=== PATIENT | male | born 1955 | race Caucasian/White ===

== ENCOUNTER 2018-11-10 08:26 | Outpatient (CLI) | payer MEDICAID ==
[2018-11-10 11:18] LABS: BUN - BLOOD UREA NITROGEN 13 mg/dL (6-20); CALCIUM 9.2 mg/dL (8.5-10.3); CARBON DIOXIDE - CO2 26 mmol/L (21-32); CHLORIDE 102 mmol/L (101-111); CHOL/HDL RATIO 2.9 (<5.0); CHOLESTEROL 206 mg/dL; CREATININE 0.7 mg/dL (0.6-1.2); GFR - MDRD 114 (>89); GLUCOSE 101 mg/dL (70-100); HDL CHOLESTEROL 71 mg/dL; LDL CHOLESTEROL,CALCULATED 114 mg/dL; LDL/HDL RATIO 1.6 (<3.6); SODIUM 138 mmol/L (135-145); VLDL CHOLESTEROL 21 mg/dL
== END 2018-11-10 08:27 | disposition home or self-care (01) ==
LOC: LAB.F 08:26
PROVIDERS: ATTEND Internal Medicine
DX: Z00.00 Encounter for general adult medical examination without abnormal findings (principal); Z12.5 Encounter for screening for malignant neoplasm of prostate
CPT/HCPCS: 36415; 80048; 80061; 83721; 84153

== ENCOUNTER 2019-02-01 08:55 | Day surgery (SDC) | payer MEDICAID ==
[~2019-02-01 08:55] MED LIST: MIDAZOLAM 2 MG/2 ML VIAL IVP ONE; fentaNYL 250 MCG/5 ML VIAL IVP ONE
[2019-02-01] MEDS ORDERED: LACTATED RINGERS 1,000 ML IV ONE ×2 (09:00→10:26)
[2019-02-01 11:23] VITALS: BP 110/70
== END 2019-02-01 08:56 | disposition home or self-care (01) ==
LOC: SDS 08:55
PROVIDERS: ATTEND Internal Medicine Gastroenterology
PROC: 0DBP8ZZ Excision of Rectum, Via Natural or Artificial Opening Endoscopic (ICD-10-PCS; principal; 2019-02-01 10:00)
DX: Z12.11 Encounter for screening for malignant neoplasm of colon (principal); K62.1 Rectal polyp; K57.30 Diverticulosis of large intestine without perforation or abscess without bleeding; K64.8 Other hemorrhoids
CPT/HCPCS: 45380; J7120

== ENCOUNTER 2021-08-21 10:07 | Outpatient (CLI) | payer MEDICARE, MEDICAID ==
--- NOTE | 2021-08-21 10:43 | XRAY Report ---
PROCEDURE: Knee 3 View RT INDICATIONS: KNEE JOINT PAIN, RIGHT TECHNIQUE: 3 views of the right knee(s) were acquired. COMPARISON: None. FINDINGS: Bones: No fractures or dislocations. Mild to moderate tricompartmental osteoarthritis is seen more prominent in medial femoral tibial compartment. No suspicious bony lesions. Soft tissues: No joint effusion. Calcification along distal quadriceps tendon is also noted which ma y indicate calcific tendinitis. Chondrocalcinosis in medial and lateral femoral tibial compartments a re seen. IMPRESSION: Mild to moderate tricompartmental osteoarthritis and chondromalacia. No fracture or disl ocation. Possible calcific tendinitis involving distal quadriceps tendons. Reviewed by: Bobby Carbajal MD on 08/21/2021 10:41 AM PDT Approved by: Bobby Carbajal MD on 08/21/2021 10:41 AM PDT Station ID: [id number]
== END 2021-08-21 23:59 | disposition home or self-care (01) ==
LOC: DI.S 10:07
PROVIDERS: ATTEND Physician Assistant Medical
DX: M17.11 Unilateral primary osteoarthritis, right knee (principal); M94.261 Chondromalacia, right knee

== ENCOUNTER 2022-04-08 11:11 | Outpatient (CLI) | payer MEDICARE, MEDICAID ==
--- NOTE | 2022-04-08 12:23 | XRAY Report ---
PROCEDURE: Lumbar Spine 2 View INDICATIONS: THORACIC AND LOW BACK PAIN TECHNIQUE: 2 views of the lumbar spine were acquired. COMPARISON: None. FINDINGS: Bones: 5 [id number] vertebrae are present. There is extensive posterior fusion of lower thorac ic and lumbar spine extending from T11 through L4 levels. Mild straightening of normal lumbar lordosi s is seen. No vertebral body compression fractures. Degenerative endplate changes and bilateral facet arthrosis at L4-5 and L5-S1 levels are seen. No gross hardware loosening or failure. No suspicious b niels lesions. Soft tissues: Overlying bowel gas pattern is normal. No suspicious soft tissue calcifications. IMPRESSION: Post fusion changes at T11-L4 levels with straightening of normal lumbar lordosis. No ac elaina compression fracture. No gross hardware complication. Degenerative disc disease at L4-5 and L5-S1 levels. Reviewed by: Bobby Carbajal MD on 04/08/2022 12:22 PM PDT Approved by: Bobby Carbajal MD on 04/08/2022 12:22 PM PDT Station ID: [id number]
--- NOTE | 2022-04-08 12:26 | XRAY Report ---
PROCEDURE: Thoracic Spine 2 View INDICATIONS: THORACIC AND LOW BACK PAIN TECHNIQUE: 3 views of the thoracic spine were acquired. COMPARISON: None. FINDINGS: Bones: Fusion hardware in lower thoracic spine and lumbar spine is seen. No gross hardware loosening or failure. There is mild kyphosis centered at T6-7 level. No acute vertebral body compression fractu res. No suspicious bony lesions. Mild degenerative endplate changes throughout mid to lower thoracic spine is seen. 12 pairs of ribs are noted, and appear intact where visualized. Soft tissues: No paravertebral stripe thickening. IMPRESSION: Prior fusion of lower thoracic spine and lumbar spine. No gross hardware loosening or failure. No acu te compression fracture or spondylolisthesis. Degenerative disc disease in mid to lower thoracic spin e. Reviewed by: Bobby Carbajal MD on 04/08/2022 12:24 PM PDT Approved by: Bobby Carbajal MD on 04/08/2022 12:24 PM PDT Station ID: [id number]
[2022-04-08 12:40] LABS: ALBUMIN/GLOBULIN RATIO 1.4 (1.0-2.2); ALKALINE PHOSPHATASE 44 IU/L (42-121); ALT ALANINE AMINOTRANSFERASE 23 IU/L (10-60); AST ASPARTATE AMINOTRANSFERASE 27 IU/L (10-42); BILIRUBIN,TOTAL 0.9 mg/dL (0.2-1.0); BUN - BLOOD UREA NITROGEN 17 mg/dL (6-20); CALCIUM 9.9 mg/dL (8.5-10.3); CARBON DIOXIDE - CO2 27 mmol/L (21-32); CHLORIDE 101 mmol/L (101-111); CHOL/HDL RATIO 3.1 (<5.0); CHOLESTEROL 304 mg/dL; CREATININE 0.7 mg/dL (0.6-1.2); GFR - MDRD 113 (>89); GLUCOSE 107 mg/dL (70-100); HDL CHOLESTEROL 97 mg/dL; LDL CHOLESTEROL,CALCULATED 173 mg/dL; LDL/HDL RATIO 1.8 (<3.6); POTASSIUM 3.8 mmol/L (3.5-5.0); SODIUM 138 mmol/L (135-145); TOTAL PROTEIN 8.5 g/dL (6.7-8.2); TRIGLYCERIDES 172 mg/dL; VLDL CHOLESTEROL 34 mg/dL
[2022-04-08 20:50] LABS: CHLAMYDIA TRACHOMATIS DNA NEGATIVE (NEGATIVE); NEISSERIA GONORRHOEAE DNA NEGATIVE (NEGATIVE)
[2022-04-09 04:09] LABS: HBsAG SCREEN Negative (Negative); HCV AB <0.1 s/co ratio (0.0-0.9); HEPATITIS B SURFACE AB QUANT <3.1 mIU/mL (Immunity>9.9)
[2022-04-09 06:11] LABS: RPR Non Reactive (Non Reactive)
[2022-04-09 07:11] LABS: HIV SCREEN 4TH GENERATION Non Reactive (Non Reactive)
== END 2022-04-08 11:12 | disposition home or self-care (01) ==
LOC: DI 11:11
PROVIDERS: ATTEND Nurse Practitioner Family
DX: M51.36 Other intervertebral disc degeneration, lumbar region (principal); M51.37 Other intervertebral disc degeneration, lumbosacral region; M47.816 Spondylosis without myelopathy or radiculopathy, lumbar region; M47.817 Spondylosis without myelopathy or radiculopathy, lumbosacral region; M51.34 Other intervertebral disc degeneration, thoracic region; Z11.3 Encounter for screening for infections with a predominantly sexual mode of transmission
CPT/HCPCS: 36415; 80053; 80061; 83721; 84153; 86317; 86592; 86803; 87340; 87389; 87491; 87591; 87661

== ENCOUNTER 2022-06-16 11:19 | Outpatient (CLI) | payer MEDICARE, MEDICAID ==
--- NOTE | 2022-06-16 14:43 | XRAY Report ---
PROCEDURE: Shoulder 3 View BILAT INDICATIONS: BILAT SHOULDER PAIN TECHNIQUE: 6 views of the shoulder were acquired. COMPARISON: None. FINDINGS: Bones: No fractures or dislocations. Moderate bilateral acromioclavicular joint osteoarthritic lindsay ges are seen. Mild to moderate bilateral glenohumeral joint osteoarthritic changes also noted. No jerica picious bony lesions. Visualized ribs appear intact. Soft tissues: No suspicious soft tissue calcifications. IMPRESSION: Moderate bilateral acromioclavicular joint and glenohumeral joint osteoarthritis. No fra cture or dislocation. No gross soft tissue abnormality. Reviewed by: Bobby Carbajal MD on 06/16/2022 2:42 PM PDT Approved by: Bobby Carbajal MD on 06/16/2022 2:42 PM PDT Station ID: [id number]
== END 2022-06-16 11:20 | disposition home or self-care (01) ==
LOC: DI 11:19
PROVIDERS: ATTEND Nurse Practitioner Family
DX: M19.012 Primary osteoarthritis, left shoulder (principal); M19.011 Primary osteoarthritis, right shoulder

== ENCOUNTER 2023-10-16 11:09 | Emergency (ER) | payer MEDICARE, OTHER ==
[2023-10-16 11:43] VITALS: BP 146/91; O2SAT 96
--- NOTE | 2023-10-16 11:53 | XRAY Report ---
PROCEDURE: Hand 3 View RT INDICATIONS: pain, swelling TECHNIQUE: 3 views of the hand(s) acquired. COMPARISON: None. FINDINGS: Bones: No fractures or dislocations. No suspicious bony lesions. Mild arthritic carpal joint spac e narrowing. Soft tissues: No suspicious soft tissue calcifications or masses. IMPRESSION: No acute bony abnormality. Moderate carpal osteoarthrosis. Reviewed by: Alfa Gonzalez MD on 10/16/2023 10:52 AM [facility] Approved by: Alfa Gonzalez MD on 10/16/2023 10:52 AM [facility] Station ID: [id number]
--- NOTE | 2023-11-04 16:08 | ED Physician Documentation ---
PD HPI UPPER EXT INJURY - Stated complaint Stated Complaint: RT HAND SWELLING - Chief complaint Chief Complaint: Ext Problem - History obtained from History obtained from: Patient - History of Present Illness Location: Right (Very nice 68 yo M presents w pain and swelling over the right hand since yesterday. Denies any known injury. He has no hx/o gout or inflammatory arthritis. No fever, no pain in the upper arm, no other joint swelling. He has not attempted any treatment for this.) Review of Systems Constitutional: reports: Reviewed and negative Nose: reports: Reviewed and negative Throat: reports: Reviewed and negative Cardiac: reports: Reviewed and negative Respiratory: reports: Reviewed and negative GI: reports: Reviewed and negative : reports: Reviewed and negative Skin: reports: Reviewed and negative Musculoskeletal: reports: Joint pain, Joint swelling PD PAST MEDICAL HISTORY - Past Medical History Past Medical History: Yes Cardiovascular: None Respiratory: None Endocrine/Autoimmune: None GI: None : Frequency HEENT: None Psych: None Musculoskeletal: None Derm: None - Past Surgical History Past Surgical History: Yes Ortho: Spine surgery, Other HEENT: Other - Present Medications Home Medications: Ambulatory Orders Medication Instructions Recorded Confirmed predniSONE [Deltasone] 40 mg PO DAILY 5 Days #10 tablet 10/16/23 - Allergies Allergies/Adverse Reactions: Allergies Allergy/AdvReac Type Severity Reaction Status Date / Time No Known Drug Allergies Allergy Verified 10/16/23 11:23 - Social History Does the pt smoke?: No Smoking Status: Never smoker Does the pt drink ETOH?: No Does the pt have substance abuse?: No - Immunizations Immunizations are current?: Yes - POLST Patient has POLST: No PD ED PE NORMAL - Vitals Vital signs reviewed: Yes - General General: Alert and oriented X 3, No acute distress, Well developed/nourished - HEENT HEENT: Atraumatic, Moist mucous membranes - Cardiac Cardiac: RRR, No murmur - Respiratory Respiratory: No respiratory distress, Clear bilaterally - Derm Derm: Normal color - Extremities Extremities: Other (mild swelling of rt hand mcp joints w/o palpable fluid collection. mild dorsal rt hand swelling. normal finger/wrist rom. ) Results - Vitals Vitals: Oxygen O2 Source Room air - Rads (name of study) No standard instances Relevant Findings:: Final report received PD Medical Decision Making - ED course Complexity details: reviewed results, re-evaluated patient, considered differential, d/w patient ED course: Pt presents w atraumatic pain of the right hand w/ joint swelling. He is non toxic appearing, and there is no erythema or cellulitis to suggest septic joint, no fever, no other joint swelling. He has no forearm or upper arm pain or swelling and low risk for dvt. I have obtained xray which shows osteoarthrosis but no other acute findings. This may be gout vs arthritis. I recommend a trial of steroids and fup w pcp as needed or return if worsening. Recommend elevation, cool compress, and rest the hand for several days. Patient discharged home in stable condition. Departure - Departure Disposition: Home, Self Care Clinical Impression: Finger joint swelling Qualifiers: Laterality: right Qualified Code(s): M25.441 - Effusion, right hand Condition: Good Instructions: Gout Eat Prevent, ED Arthritis Gout Prescriptions: predniSONE [Deltasone] 40 mg PO DAILY 5 Days #10 tablet Comments: The joint swelling in your hand may be gout or flare of arthritis inflammation. The xray does not show any bony injury. The pain and swelling should improve in the next week. Please take the steroids as prescribed, you may also take tylenol. When you finish the steroids, if you are still having pain, you can take ibuprofen as well. Use a cool compress to help with pain and swelling. If the redness spreads or you develop a fever, please return to the ER. Please consider stopping alcohol use at this can contribute to gout. Forms: PCP List Discharge Date/Time: 10/16/23 12:01
== END 2023-10-16 12:01 | disposition home or self-care (01) ==
LOC: ED 11:09
DX: M25.441 Effusion, right hand (principal)
CPT/HCPCS: 99283

== ENCOUNTER 2024-06-09 11:57 | Emergency (ER) | payer MEDICARE ==
--- NOTE | 2024-06-09 13:19 | ED Physician Documentation ---
PD HPI OPHTHO - Stated complaint Stated Complaint: EYE SWELLING - Chief complaint Chief Complaint: Heent - History obtained from History obtained from: Patient - Additional information Additional information: He developed pain and swelling in both periorbital regions about 36 hours ago. He has had some improvement he thinks after Zyrtec. His vision really is not affected by this. Never had this before. PD PAST MEDICAL HISTORY - Past Medical History Past Medical History: No Cardiovascular: None Respiratory: None Endocrine/Autoimmune: None GI: None : Frequency HEENT: None Psych: None Musculoskeletal: None Derm: None - Past Surgical History Past Surgical History: Yes Ortho: Spine surgery, Other HEENT: Other - Present Medications Home Medications: Ambulatory Orders Medication Instructions Recorded Confirmed predniSONE [Deltasone] 40 mg PO DAILY 5 Days #10 tablet 10/16/23 Ketotifen Fumarate [Alaway] 1 drops OP BID #10 ml 06/09/24 predniSONE [Deltasone] 20 mg PO [id number] #21 tab 06/09/24 - Allergies Allergies/Adverse Reactions: Allergies Allergy/AdvReac Type Severity Reaction Status Date / Time No Known Drug Allergies Allergy Verified 06/09/24 12:18 - Social History Does the pt smoke?: No Smoking Status: Never smoker Does the pt drink ETOH?: No Does the pt have substance abuse?: No - Immunizations Immunizations are current?: Yes - POLST Patient has POLST: No PD ED PE NORMAL - Vitals Vital signs reviewed: Yes - General General: Alert and oriented X 3, No acute distress - HEENT HEENT: PERRL, EOMI, Other (Swelling and inflammation in both periorbital areas that spares the conjunctiva and there is no drainage.) - Neuro Neuro: Alert and oriented X 3 Results - Vitals Vitals: Vital Signs - 24 hr 06/09/24 12:18 Temperature 36.6 C Heart Rate 82 Respiratory 16 Rate Blood Pressure 150/90 H O2 Saturation 98 Oxygen O2 Source Room air PD Medical Decision Making - ED course ED course: This does look allergic and he is advised to continue Zyrtec to which I will add ketotifen and prednisone. Departure - Departure Disposition: 01 Home, Self Care Clinical Impression: Allergic reaction Qualifiers: Encounter type: initial encounter Qualified Code(s): T78.40XA - Allergy, unspecified, initial encounter Condition: Good Record reviewed to determine appropriate education?: Yes Instructions: ED Allergic Reaction Local Other Prescriptions: Ketotifen Fumarate [Alaway] 1 drops OP BID #10 ml predniSONE [Deltasone] 20 mg PO [id number] #21 tab Comments: I agree that this is likely allergic and you can continue the Zyrtec in addition to the prednisone and eyedrop I am giving you. Call your doctor to arrange a follow-up appointment, make the next available appointment. In the interim, return anytime if worse or if new symptoms develop.
[2024-06-09 13:35] VITALS: BP 140/88; O2SAT 100
== END 2024-06-09 13:25 | disposition home or self-care (01) ==
LOC: ED 11:57
DX: T78.40XA Allergy, unspecified, initial encounter (principal)
CPT/HCPCS: 99282; 99283